=== PATIENT | male | born 1970 | race Caucasian/White ===

== ENCOUNTER 2019-04-11 07:30 | Emergency (ER) | payer MEDICAID ==
[2019-04-11] MEDS ORDERED: Sodium Chloride 0.9% 1,000 ML IV ONE (08:05)
[2019-04-11] MEDS ORDERED: Morphine Sulfate 4 mg/mL 1mL Syr IV STA (08:06)
[2019-04-11] MEDS ORDERED: Morphine Sulfate 4 mg/mL 1mL Syr ONE (08:08)
--- NOTE | 2019-04-11 08:10 | ED Physician Chart ---
ED Chief Complaint/HPI - Patient Information Date Seen:: 04/11/19 Time Seen:: 08:05 Chief Complaint:: abdominal pain, vomiting and diarrhea History of Present Illness:: Patient had onset 3 days ago of mid and upper abdominal pain, vomiting and diarrhea. Patient has vomited twice last time at 1800 last night. He has had watery diarrhea 5 times. No fever. No recent foreign travel Allergies:: Allergies Allergy/AdvReac Type Severity Reaction Status Date / Time No Known Allergies Allergy Verified 04/11/19 07:53 Vitals:: Vital Signs - 8 hr 04/11/19 07:53 Temp 96.9 F HR 74 RR 16 BP 131/89 O2 Sat % 96 Historian:: Patient, Family Member ED Review of Systems - Review of Systems General/Constitutional: No fever, No chills, No weight loss, No weakness, No diaphoresis, No edema, No loss of appetite Skin: No skin lesions, No rash, No bruising Head: No headache, No light-headedness Eyes: No loss of vision, No pain, No diplopia ENT: No earache, No nasal drainage, No sore throat, No tinnitus Neck: No neck pain, No swelling, No thyromegaly, No stiffness, No mass noted Cardio Vascular: No chest pain, No palpitations, No PND, No orthopnea, No edema Pulmonary: No SOB, No cough, No sputum, No wheezing GI: Vomiting, Diarrhea, Pain, No melena, No hematochezia, No constipation, No hematemesis G/U: No dysuria, No frequency, No hematuria Musculoskeletal: No bone or joint pain, No back pain, No muscle pain Endocrine: No polyuria, No polydipsia Psychiatric: No prior psych history, No depression, No anxiety, No suicidal ideation Hematopoietic: No bruising, No lymphadenopathy Allergic/Immuno: No urticaria, No angioedema Neurological: No syncope, No focal symptoms, No weakness, No paresthesia, No headache, No seizure, No dizziness, No confusion, No vertigo ED Past Medical History - Past Medical History Past Medical History: No significant medical hx Family History: Diabetes Melitus Social History: Non Smoker, No Alcohol Surgical History: Appendectomy Psychiatricy History: None Family Medical History - Family Member Mother History Unknown: Yes Living Status: Still Living ED Physical Exam - Physical Examination General/Constitutional: Awake, Well-developed, well-nourished, Alert, No distress Head: Atraumatic Eyes: Lids, conjuctiva normal Skin: Nl inspection, No rash ENMT: External ears, nose nl Neck: No nuchal rigidity Respiratory: Nl effort/Exclusion, Clear to Auscultation, No Wheeze/Rhonchi/Rales Cardio Vascular: RRR, No murmur, gallop, rubs, NL S1 S2 GI: No organomegaly, No hernia, Normal BS's, Nondistended, No mass/bruits Other GI comments:: Periumbilical tenderness : No CVA tenderness Extremities: Normal digits & nails Neuro/Psych: No focal deficits Misc: No paraspinal tenderness ED Assessment - Assessment General Assessment: At 0910 patient felt improved. I encouraged the patient to drink a lot of half Gatorade half water and eat extra bananas for the potassium they contain. Will prescribe Zofran 4 mg oral disintegrating tablet #6 to take 1 every 4-6 hours as necessary for nausea and vomiting. ED Septic Shock - . Is Septic Shock (SBP<90, OR Lactate>4 mmol\L) present?: No - <6hrs of presentation: Vital Signs: Vital Signs - 8 hr // 07:53 Temp 96.9 F HR 74 RR 16 BP 131/89 O2 Sat % 96 ED Reassessment (Disposition) - Reassessment Reassessment Condition:: Improved - Diagnosis Diagnosis:: Viral gastroenteritis - Aftercare/Follow up Instructions Aftercare/Follow-Up Instructions:: Refer to Discharge Instructions - Patient Disposition Discharge/Transfer:: Home Condition at Disposition:: Stable, Improved
[2019-04-11 08:28] LABS: EOSINOPHILE ABSOLUTE 0.4 Th/cmm (0.1-0.4); HEMATOCRIT 43.7 % (41.0-60); HEMOGLOBIN 14.4 gm/dL (12-16); LYMPHOCYTE ABSOLUTE 1.9 Th/cmm (1.5-3.0); MONOCYTE ABSOLUTE 1.1 Th/cmm (0.3-1.0); NEUTROPHILE ABSOLUTE 2.8 Th/cmm (1.8-8.0); PLATELET COUNT 312 Th/cmm (150-400); RED BLOOD COUNT 5.32 Mil/cmm (4.30-5.70); WHITE BLOOD COUNT 6.2 Th/cmm (4.8-10.8)
[2019-04-11 08:45] LABS: ANION GAP 10.5 (7.0-16.0); BUN - UREA NITROGEN 14 mg/dL (7-25); CALCIUM SERUM 9.7 mg/dL (8.6-10.3); CARBON DIOXIDE 30.6 mEq/L (21.0-31.0); CHLORIDE 103 mEq/L (98-107); CREATININE - SERUM 0.8 mg/dL (0.7-1.3); GFR AFRICAN-AMERICAN > 60.0 ml/min (>90); GFR NON AFRICAN-AMERICAN > 60.0 ml/min; GLUCOSE 121 mg/dL (70-105); LIPASE 4 U/L (11-82); MAGNESIUM 2.2 mg/dL (1.9-2.7); POTASSIUM SERUM 4.1 mEq/L (3.5-5.1); SODIUM SERUM 140 mEq/L (136-145)
[2019-04-11 09:33] LABS: BAND NEUTROPHILE 2 % (0-10); EOSINOPHIL 4 % (0-5); LYMPHOCYTE 34 % (20-50); MONOCYTE 14 % (2-10); NEUTROPHILS 46 % (40-80); PLATELET ESTIMATE ADEQUATE (NORMAL)
== END 2019-04-11 09:30 | disposition home or self-care (01) ==
LOC: ER 07:30
DX: A08.4 Viral intestinal infection, unspecified (principal); Z90.49 Acquired absence of other specified parts of digestive tract
CPT/HCPCS: 99283; 96374; 96375; 36415; 85007; 85025; 83690; 83735; 80048; J2405; J7030; Z7502